=== PATIENT | male | born 1990 | race African-American/Black ===

== ENCOUNTER 2024-11-29 13:02 | Inpatient (IN) | payer OTHER, SELFPAY ==
[2024-11-29] VITALS (8 sets, daily range): BP systolic 111–131; BP diastolic 70–88; BMI 31.9; BMI 32.0
--- NOTE | 2024-11-29 10:08 | ED.GENMED ---
History of Present Illness
General
Chief Complaint: Change in Mental Status
Source: patient and family (parents)
Time Seen by Provider: 11/29/24 09:41
History of Present Illness
History of Present Illness:
The patient is a 34-year-old male who presented to the emergency department with hallucinations, slurred speech, and increased thirst and urination. He reports using nitrous oxide, commonly referred to as 'whippets,' continuously for approximately
one week. He was consuming two to three large canisters per day. He has also been smoking cannabis occasionally. The patient mentioned feeling very thirsty and experiencing an inability to quench his thirst over the last few days. He is not aware of
having diabetes but was informed about being pre-diabetic approximately two to three months ago. He reported the last use of nitrous oxide was on Sunday. He has a history of hypertension and anxiety but does not report any surgeries.
Per the patients parents, the patient exhibited slurred speech and hallucinations, talking to people who were not present. His cognitive function appeared impaired, presenting as nervousness and twitchiness.
Past History
Past History
ED Past Medical History: None
ED Past Surgical History: None
Social History
Tobacco: Non-smoker
Personal: Single
Living: with roommate
Employment: Student
Phy Exam
Physical Exam
Physical Exam:
General: Awake, Alert, Oriented X3. No acute distress.
Vitals: Mildly tachycardic
Head: Atraumatic
Eyes: Pupils equal, EOMI
Throat: Airway intact, no exudates, dry mucosa
Neck: Trachea midline
Lungs: Clear and equal b/l
Heart: Regular rate, no murmurs
Abd: Soft, Nontender, No pulsatile mass
Neuro: Cranial nerves intact, muscle strength equal bilaterally, cerebellar exam normal, mild tremor
Skin: Warm, dry, no rash
Extremities: pulses equal b/l, no edema, positive clubbing
Course
Orders/Labs/Results
Orders:
Orders
11/29/24 09:53
0.9% Sodium Chloride 1000 ml [Nss] 1,000 ml IV BOLUS
11/29/24 09:54
CT Head W/o Iv Contrast Urgent
Comment:
Reason For Exam: altered mental status
11/29/24 Lunch
2200 calorie (18 carb) Diabetic
At Your Request: Full Participation
Does patient need a safe tray?: Yes
11/29/24 10:10
Electrocardiogram (*1) Urgent
Reason for Study: Palpitations
Bedside Glucose- Treatment ONCE
Cardiac Monitoring- Treatment ONCE
EKG- Treatment ONCE
11/29/24 10:18
Complete Blood Count/With Diff Urgent
Comprehensive Metabolic Panel Urgent
Magnesium Urgent
TSH Reflex To Free T4 Urgent
11/29/24 10:27
ABG [Arterial Blood Gas] Urgent
%Oxygen/Room Air: ra
Comment: methemaglobin level please
Methemoglobin Urgent
11/29/24 11:16
Bedside Glucose- Treatment Q1H
IV Insert/Care/Rem.- Treatment PRN
11/29/24 11:22
Microalbumin, Random Urine Urgent
Date Specimen was Collected: 11/29/24
Time Specimen was Collected: 11:20
Comment: ADD ON
Urinalysis Reflex To Culture Urgent
Date Specimen was Collected: 11/29/24
Time Specimen was Collected: 11:20
Urine Drug Abuse Screen Urgent
Date Specimen was Collected: 11/29/24
Time Specimen was Collected: 11:20
11/29/24 11:30
Reg Insulin 100 Units/100 ml [Novolin R Insulin Infusion] 100 units in 100 ml IV NOW
11/29/24 12:00
KCl 20 Meq/0.9%Sodchl 1000 ml [NSS with KCL 20 MEQ] 20 meq in 1,000 ml IV 250 mls/hr
11/29/24 12:37
Admit/Transfer Patient As Directed
Co-Sign Provider:
Level of Care: Inpatient admission
Assign to:: Medical/Surgical
Physician / Group: Hospitalists
Diagnosis: Altered Mental status, Hyperglycemia
Reason for Hospitalization: Altered Mental status, Hyperglycemia
Expected length of stay greater than two midnights?: Yes
ELOS- Estimated Length of Stay in days: 4
I certify the patient meets the requirements for IP care: Yes
11/29/24 12:38
PRN Pain Medication Management As Directed
May give lesser potent ordered pain med per pt: Yes
preference::
Protocol:: Medication orders for pain may be administered in a
manner that supports deferring to patient preference
when the pt is:
- Requesting an ordered lesser potent pain medication.
Least to most potent pain medications are defined
as: acetaminophen < NSAID < tramadol < opioids
(morphine, oxycodone, hydromorphone).
- Requesting a lesser dose of the same medication IF
ORDERED.
- Requesting a less intrusive route of administration
if both routes are prescribed by the provider (PO <
IV).
11/29/24 12:39
Code Status As Directed
Resuscitation Status: Full Code
11/29/24 13:00
Flush (0.9% Sodium Chloride) [Flush (Nss)] See Dose Instructions IV PER PROTOCOL
11/29/24 13:03
Basic Metabolic Panel Q2H
11/29/24 15:30
Basic Metabolic Panel Q2H
11/29/24 15:54
KCl 20 Meq/0.9%Sodchl 1000 ml [NSS with KCL 20 MEQ] 20 meq in 1,000 ml IV 100 mls/hr
11/29/24 15:54
Diabetes Education Consult Routine
Reason for Consult: Other
Newly Diagnosed?: Yes
Diabetes Management by Nurse Practitioner Routine
Consulting Provider: Douse,Jenna
Was provider already notified?: No
Reason for Consult: Insulin Management
Activity As Directed
Activity Level: As Tolerated
Bedside Glucose Monitoring As Directed
Frequency: q4h
Intake/ Output As Directed
Frequency: Per unit guidelines
Notify MD As Directed
Notify physician if: Nurse to contact provider when glucose reaches 250 to obtain orders for D5 0.45 NaCl
Pneumatic Compression Sleeves As Directed
Type: Knee high
Vital Signs As Directed
Frequency: Per unit guidelines
DX Deep Vein Thrombosis Video Routine
11/30/24 06:00
Complete Blood Count/No Diff IN AM
Glycohemoglobin (HgbA1c) IN AM
11/30/24 08:00
Atorvastatin [Lipitor] 10 mg PO DAILY
FOLic ACID [Folvite] 1 mg PO DAILY
Fluoxetine HCl [Prozac] 60 mg PO DAILY
brexpiprazole [Rexulti] 1 mg PO DAILY
12/01/24 06:00
Complete Blood Count/No Diff IN AM
12/02/24 06:00
Complete Blood Count/No Diff IN AM
12/03/24 06:00
Complete Blood Count/No Diff IN AM
Abnormal Lab Results
11/29/24 11/29/24 11/29/24
10:18 10:27 11:22
RBC 4.22 L 10^6/uL
(4.70-6.10)
Hgb 12.5 L g/dL
(13.0-18.0)
Hct 36.7 L %
(39.0-52.0)
RDW 15.5 H %
(11.5-14.5)
MPV 11.0 H fL
(7.4-10.4)
Abs Immat Gran (auto) 0.1 H 10^3/uL
(0-0.05)
Absolute Monos (auto) 0.7 H 10^3/uL
(0.1-0.6)
Immature Gran % 1.0 H %
(0-0.5)
Monocytes % 11.0 H %
(1.7-9.3)
pO2 68 L mmHg
(83-108)
Sodium 130 L mmol/L
(135-145)
Potassium 5.3 H mmol/L
(3.5-5.1)
Chloride 94 L mmol/L
(98-107)
Glucose 760 H* mg/dl
(70-99)
Magnesium 2.4 H mg/dl
(1.6-2.3)
Alkaline Phosphatase 199 H U/L
(38-126)
Urine Glucose 4+ A
(Negative)
U Marijuana (THC) Screen Positive H
(Negative)
POC Glucose
11/29/24
12:57
RBC
Hgb
Hct
RDW
MPV
Abs Immat Gran (auto)
Absolute Monos (auto)
Immature Gran %
Monocytes %
pO2
Sodium
Potassium
Chloride
Glucose
Magnesium
Alkaline Phosphatase
Urine Glucose
U Marijuana (THC) Screen
POC Glucose 349 H mg/dl
(70-99)
11/29/24 10:18
11/29/24 10:18
Vital Signs
Initial and Last Documented VS:
Initial Vital Signs
Temp Pulse Resp BP Pulse Ox
99.4 F 105 20 131/88 96
11/29/24 09:20 11/29/24 09:20 11/29/24 09:20 11/29/24 09:20 11/29/24 09:20
Last Documented Vital Signs
Temp Pulse Resp BP Pulse Ox
98.6 F 103 16 121/74 90
11/29/24 15:50 11/29/24 15:50 11/29/24 15:50 11/29/24 15:50 11/29/24 15:50
MDM/Problems Addressed
Differential Diagnosis Includes:
The Differential Diagnosis includes, in no particular order and is not limited to:
1. Acute hallucinogen intoxication
2. Substance-induced psychotic disorder
3. Uncontrolled hypertension
4. Hyperglycemia or new-onset diabetes mellitus
5. Electrolyte imbalance
6. Acute anxiety exacerbation
7. Stroke or transient ischemic attack
8. Central nervous system infection or inflammation
9. Intracranial hemorrhage or mass
MDM/Problems Addressed:
Patient presents with hallucinations, confusion, polyuria, polydipsia, polyphasia. Upon initial evaluation I was suspecting the patient's symptoms were related to his whippets use. However labs show that he has significant elevation in his
glucose. He does not have a elevated anion gap and a arterial pH is normal. Given the marked elevation of his glucose he was started on an insulin infusion. IV fluid boluses also administered. Patient will require hospitalization for careful
monitoring and initiation of diabetic treatment. Patient advised that the whippets are also contributing to some of his symptoms particularly likely the cause of his hallucinations and psychiatric symptoms. He is interested in talking to be cares.
A call was placed for that.
*Radiology
Radiology exam reviewed: radiology read reviewed
*Pulse Oximetry
SaO2: 96
Oxygen Mode of Delivery: Room air
Patient hypoxic: no
*EKG
Interpreted by ED Provider?: Yes
Interpretation: abnormal
Heart Rate: 109
Rate: tachycardiac
Rhythm: sinus tachycardia
[place]: normal axis
Interval: normal interval
QRS Pattern: normal QRS
Ischemia: no ischemia
*Unit Educator Interpretation
Rate: tachycardiac
Interpretation: abnormal
Heart Rate: 109
Rhythm: sinus tachycardia
*Critical Care Note
Total Time (30-74mins, 75-104mins- exclusive of procedures): 45 min
comment:
Critical care statement: A total of 45 minutes of critical care time was provided for this patient. This includes management of unstable vital signs, evaluation of the patient at bedside, reviewing the patient's pertinent medical records, discussion
with consultants, review of old EKGs and review of pertinent medical records. This time with separate from time utilized to perform the aforementioned documented procedures
Patient Management
Social determinants of health affecting care: Substance abuse ([facility])
ED Attending Note
-
Portions of this chart may have been created with voice recognition software.� Occasional wrong word or��sound alike� substitutions may have occurred due to the inherent limitations of voice recognition software.
Discharge Plan
Departure
Patient Disposition: Admit
Date of Disposition: 11/29/24
Time of Disposition: 11:21
Admit to: IMU
Presentation/result/management discussed w/ accepting MD/DO: Hospitalist
Condition: Serious
Discharge Problem:
Hyperosmolar hyperglycemic state (HHS), Nitrous oxide user
Interventions
Interventions:
*Risk Screen - Suicide Last Done: 11/29/24 16:06
*General Assessment Last Done: 11/29/24 09:20
*Neglect/Abuse Screening Last Done: 11/29/24 10:26
*ED- Fall Risk Assessment Last Done: 11/29/24 10:22
*ED COVID-19 Vaccine History Last Done: 11/29/24 16:06
*Nursing Disposition Last Done: 11/29/24 15:48
ED- Pulmonary Assessment Last Done: 11/29/24 11:00
ED-Psychological Assessment Last Done: 11/29/24 11:00
ED- Neurological Assessment Last Done: 11/29/24 11:00
ED- Cardiac Assessment Last Done: 11/29/24 11:00
Discharge Date and Time
Discharge Date/Time: 11/29/24 15:48
[2024-11-29] MEDS: NSS 1000 IV (10:18)
[2024-11-29 10:37] LABS: Hematocrit 36.7 % (39.0-52.0); Hemoglobin 12.5 g/dL (13.0-18.0); Mean Corp Hgb Conc. 34.1 g/dL (33.0-37.0); Mean Corpuscular Volume 87.0 fL (80.0-94.0); Nucleated Red Blood Cells % 0 % (-); Platelet Count 262 10^3/uL (130-400); Red Cell Dist. Width 15.5 % (11.5-14.5)
[2024-11-29 10:38] LABS: B.E. 1.0 mmol/L; HCO3 26.0 mmol/L (21-28); O2 Saturation % 95.9 % (94-98); PCO2 42 mmHg (35-48); PO2 68 mmHg (83-108)
[2024-11-29 10:49] LABS: Methemoglobin 1.2 % (0.5-1.5)
[2024-11-29 10:55] LABS: ALT (SGPT) 30 U/L (0-50); AST (SGOT) 17 U/L (17-59); Albumin 4.6 g/dl (3.5-5.0); Alkaline Phosphatase 199 U/L (38-126); Blood Urea Nitrogen 19 mg/dl (9-20); Calcium 9.7 mg/dl (8.4-10.2); Carbon Dioxide 27 mmol/L (22-30); Chloride 94 mmol/L (98-107); Estimated Creatinine Clearance > 125 ml/min; Magnesium 2.4 mg/dl (1.6-2.3); Potassium 5.3 mmol/L (3.5-5.1); Sodium 130 mmol/L (135-145); Total Protein 7.5 g/dl (6.3-8.2); eGFR > 60.00
[2024-11-29 11:09] LABS: Glucose 760 mg/dl (70-99)
[2024-11-29 11:33] LABS: Urine Character Clear (Clear)
[2024-11-29] MEDS: NSS with KCL 20 MEQ 1000 IV ×2 (11:53→17:07)
[2024-11-29] MEDS: NOVOLIN R INSULIN INFUSION 100 IV (11:54)
[2024-11-29 12:59] LABS: Glucose - Point of Care 349 mg/dl (70-99)
[2024-11-29 13:31] LABS: Blood Urea Nitrogen 18 mg/dl (9-20); Calcium 9.4 mg/dl (8.4-10.2); Carbon Dioxide 28 mmol/L (22-30); Chloride 102 mmol/L (98-107); Estimated Creatinine Clearance > 125 ml/min; Glucose 382 mg/dl (70-99); Potassium 4.4 mmol/L (3.5-5.1); Sodium 138 mmol/L (135-145); eGFR > 60.00
[2024-11-29 14:02] LABS: Glucose - Point of Care 254 mg/dl (70-99)
--- NOTE | 2024-11-29 14:13 | HPS.HSE ---
Addendum entered and electronically signed by Rosemary Mckinley MD 11/29/24 15:17:
I saw and evaluated the patient independently. I reviewed the resident�s note and agree with findings and plan as documented by Dr. Galarza.
GENERAL: well developed, well nourished, male in no apparent distress--appears 'high'
HEENT: NC/AT
HEART: regular rate and rhythm, +S1, +S2
LUNGS : clear to auscultation bilaterally
ABDOM: soft, nontender, nondistended, + bowel sounds
EXT: no cyanosis, clubbing, or edema
NEUROLOGIC: twitchy--otherwise nonfocal
Hyperosmolar hyperglycemic state--as result of new onset DM--started IVF and insulin drip--BS improved from 760 to 349--c/o thirsty, hungry, and frequent urination--await HGB U1A--xrokl mealtime novolog with SSI and lantus HS--follow blood
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
Pseudohyponatremia-- Monitoring�stable--130 corrects to 141
Altered mental status with hallucinations and slurred speech--Parents endorse that the patient has been hallucinating and talking to himself--vapes nicotine, inhales 'whippets' (nitrous oxide), and smokes marijuana--could be drug effect--no h/o
schizophrenia or schizoaffective disorder--cont prozac and Rexulti--await psych--cont thiamine, folic acid
Anxiety/depression--Continue fluoxetine/brexpiprazole
Hyperlipidemia: Monitoring�-atorvastatin 10 mg p.o. daily
DVT Proph--SCDs
code status--FULL CODE
Original Note:
Family Physician
-
Family Physician: Carrol Abrams
Chief Complaint
-
Altered mental status and excessive drinking and urination
History of Present Illness
Patient is a 34-year-old male with a past medical history of prediabetes recently diagnosed, essential hypertension, anxiety, depression, and hyperlipidemia who came to the emergency department with hallucinations, slurred speech, increased thirst
with urination. He reported using nitric oxide continuously for 1 week. He was using approximately 2-3 large canisters daily. The size of these canisters were about the size of a liter bottle. He uses THC frequently. At home he was very thirsty
unable to quench his thirst over the last few days prior to his presentation. He had been thirsty all the time. He has been urinating frequently and his parents have noticed that the frequency of his urination is very similar to what his mother
who has diabetes experienced when her glucose was poorly controlled. He was informed that he was prediabetic 2 to 3 months prior to his presentation. He states that he last used nitric oxide on last Sunday which was approximately a week ago.
Patient stated that he feels overall unwell and that he feels somewhat better after consuming food. The patient's parents were at the bedside and stated that the patient had slurred speech with hallucinations while at home. They also stated that
he was talking to people who were not there. He also had hyperhidrosis noted by his parents. His last episode of acute altered mental status was in May of this year. At that time he lived in [place] at a [facility] and was found to be
using nitric oxide at that time. Since then he is returned to [place] and lives with his parents. This most recent episode is the first time he is relapsed since arriving to [place]. He states that he does not smoke cigarettes but he
does vape nicotine. 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 In the emergency department the patient was found to be tachycardic but the remainder of his vital signs were within normal limits. CBC was unremarkable. CMP showed a
sodium of 130, potassium of 5.3, elevated glucose at 760, and alk phos of 199. Urine analysis showed 4+ glucose in the urine. ABG conducted in the emergency department was within normal limits. Urine drug screen was positive for marijuana. CT
scan of the head conducted in the emergency department was unremarkable. Patient was admitted to [facility] for hyperosmolar hyperglycemic state and altered mental status.
Medical History
Past Medical History
Past Medical History: Reports HTN, Hypercholesterolemia and Psychiatric (Anxiety and depression)
Past Surgical History: Reports None
Social History
Tobacco: Vaping (Nicotine)
Alcohol: None
Drug: Marijuana
Personal: Single
Living: With Family
Employment: Not Employed (Formerly employed as a baseball glove shaper)
Family History
Family History: Asthma, Diabetes and Hypertension
Allergies / Home Medications
Allergies
Allergy/AdvReac Type Severity Reaction Status Date / Time
peanut Allergy itchy Verified 11/29/24 09:22
mouth,
vomiting,
abd pain
cats dander Allergy Rash Uncoded 11/29/24 09:22
Home Medications
atorvastatin 10 mg tablet (Lipitor) 10 mg PO DAILY 11/29/24
brexpiprazole 1 mg tablet (Rexulti) 1 mg PO DAILY 11/29/24
fluoxetine 60 mg tablet 60 mg PO DAILY 11/29/24
folic acid 1 mg tablet 1 mg PO DAILY 11/29/[address]
CT Scan
Category Date Time Status
CT Head W/o Iv Contrast Urgent CT 11/29/24 09:54 Completed
Allergy/Medication List:
Allergies
Allergy/AdvReac Type Severity Reaction Status Date / Time
peanut Allergy itchy Verified 11/29/24 09:22
mouth,
vomiting,
abd pain
cats dander Allergy Rash Uncoded 11/29/24 09:22
Home Medications
atorvastatin 10 mg tablet (Lipitor) 10 mg PO DAILY 11/29/24
brexpiprazole 1 mg tablet (Rexulti) 1 mg PO DAILY 11/29/24
fluoxetine 60 mg tablet 60 mg PO DAILY 11/29/24
folic acid 1 mg tablet 1 mg PO DAILY 11/29/24
Review of Systems
-
Constitutional: Reports See HPI and Other (Hyperhidrosis at home)
EENT: Reports No Symptoms
Respiratory: Reports No Symptoms
Cardiac: Reports No Symptoms
Abdomen/GI: Reports No Symptoms
: Reports No Symptoms
Musculoskeletal: Reports No Symptoms
Skin: Reports No Symptoms
Neurological: Reports No Symptoms
Endocrine: Reports No Symptoms
Hematologic/Lymphatic: Reports No Symptoms
Psych: Reports Anxiety
Physical Exam
Vital Signs
Vital Signs
Temp Pulse Resp BP Pulse Ox
99.4 F 96 15 121/75 97
11/29/24 09:20 11/29/24 13:00 11/29/24 13:00 11/29/24 13:00 11/29/24 13:00
Physical Exam
General: Well Developed, Well Nourished, No Apparent Distress, Comfortable and Conversant
HEENT: NormoCephalic, Moist mucous membranes and Atraumatic; No No Ptosis
Respiratory: Clear and Non Labored Respirations; No Wheezes, Rales, Rhonchi or Crackles
Cardiac: S1/S2 and Regular Rhythm; No Murmur, Rub, Gallop, Peripheral Edema, JVD or HJR
GI: Soft, Non Tender, Non Distended and Normal Bowel Sounds
Rectal: Deferred by Provider
Genito-urinary: Deferred by me
Musculoskeletal: No Clubbing, No Cyanosis, No Edema and Normal Gait & Station; No Cyanosis
Skin: Warm and Dry; No Rash, Jaundice, Ulcers or Lesions
Neuro: Awake, Alert, Oriented and AO x 3
Psych: Calm
Laboratory Results
-
11/29/24 10:18
Laboratory Results
pH 7.40 (7.35-7.45) 11/29/24 10:27
pCO2 42 mmHg (35-48) 11/29/24 10:27
pO2 68 mmHg (83-108) L 11/29/24 10:27
HCO3 26.0 mmol/L (21-28) 11/29/24 10:27
Total Bilirubin 0.6 mg/dl (0.2-1.3) 11/29/24 10:18
AST 17 U/L (17-59) 11/29/24 10:18
ALT 30 U/L (0-50) 11/29/24 10:18
Alkaline Phosphatase 199 U/L (38-126) H 11/29/24 10:18
Impression/Plan
-
HPI: Patient is a 34-year-old male with a past medical history of prediabetes recently diagnosed, essential hypertension, anxiety, depression, and hyperlipidemia who came to the emergency department with hallucinations, slurred speech, increased
thirst with urination. He reported using nitric oxide continuously for 1 week. He was using approximately 2-3 large canisters daily. Had a blood glucose greater than 700 in the emergency department. Started on an insulin drip. Admitted for
hyperosmolar hyperglycemic state with altered mental status.
Assessment/Plan:
-Hyperosmolar hyperglycemic state: Improving�monitoring
Upon arrival to the emergency department the patient's BMP had a glucose of 760 and a POC glucose of 349
Patient was frequently drinking water and urinating. He stated that he felt thirsty all the time.
Anion gap calculated to be 9, ABG unremarkable with normal pH, urine glucose 4+... -indicating HHS ruling out DKA
Patient started on an insulin drip in the emergency department and supportive fluids
Patient responded quickly to IV insulin and follow-up labs showed reduced blood glucose at 382 and a POC glucose of 254
Insulin drip discontinued
Patient switched to moderate sliding scale insulin
10 Lantus at bedtime
3 NovoLog AC
Follow potassium and replete as needed
Hemoglobin A1c ordered
Urine microalbumin ordered
Diabetic nurse practitioners consulted
-Pseudohyponatremia: Monitoring�stable
Patient was hyponatremic with a value of 130 on BMP
Sodium correction for hyponatremia calculated to be at 141 mEq/L -within normal limits
Follow-up lab work had a sodium of 138�within normal limits
-Altered mental status with hallucinations and slurred speech: Monitoring-stable
Parents endorse that the patient has been hallucinating and talking to himself
Patient appears to be on brexpiprazole which is a second generation atypical antipsychotic used for schizophrenia and depression
Psychiatry consulted for assessment and management of altered mental status that may be secondary to underlying psychiatric condition such as schizophrenia or polypharmacy in the setting of recreational drug use
Thiamine and folate given
-Anxiety/depression: Monitoring�stable
Continue fluoxetine 60 mg p.o. daily
Continue brexpiprazole 1 mg p.o. daily
-Hyperlipidemia: Monitoring�stable
Continue atorvastatin 10 mg p.o. daily
-Substance use disorder:
Supportive counseling and education provided at the bedside
Will connect the patient with [facility]
FULL CODE STATUS
DVT Prophylaxis: SCDs
Imaging:
CT of the head conducted on 11/29/2024:
No acute intracranial abnormality.
Procedures: Not applicable
[2024-11-29 16:42] LABS: Glucose - Point of Care 160 mg/dl (70-99)
[2024-11-29 17:00] LABS: Glucose - Point of Care 301 mg/dl (70-99)
[2024-11-29 17:04] LABS: Microalbumin, Random Urine 0.9 mg/dl (0.6-1.7)
[2024-11-29] MEDS: NSS with KCL 20 MEQ IV (17:06)
[2024-11-29] MEDS: NOVOLOG FLEXPEN-MODERATE RESISTANCE 7 UNITS SC (17:06)
[2024-11-29] MEDS: NOVOLOG FLEXPEN 5 UNITS SC (17:27)
[2024-11-29 21:40] LABS: Glucose - Point of Care 238 mg/dl (70-99)
[2024-11-29] MEDS: LANTUS 0.15 UNITS SC (21:43)
[2024-11-29 22:02] LABS: Blood Urea Nitrogen 18 mg/dl (9-20); Calcium 9.3 mg/dl (8.4-10.2); Carbon Dioxide 25 mmol/L (22-30); Chloride 105 mmol/L (98-107); Estimated Creatinine Clearance > 125 ml/min; Glucose 255 mg/dl (70-99); Potassium 4.5 mmol/L (3.5-5.1); Sodium 137 mmol/L (135-145); eGFR > 60.00
[2024-11-30] MEDS: NSS with KCL 20 MEQ 1000 IV (02:46)
[2024-11-30 07:12] LABS: Hematocrit 37.2 % (39.0-52.0); Hemoglobin 12.8 g/dL (13.0-18.0); Mean Corp Hgb Conc. 34.4 g/dL (33.0-37.0); Mean Corpuscular Volume 87.1 fL (80.0-94.0); Platelet Count 269 10^3/uL (130-400); Red Cell Dist. Width 15.4 % (11.5-14.5)
[2024-11-30 07:29] LABS: Glucose - Point of Care 169 mg/dl (70-99)
--- NOTE | 2024-11-30 07:30 | W.PN.HOSP.TC ---
Addendum entered and electronically signed by Rosemary Mckinley MD 11/30/24 17:31:
I saw and evaluated the patient independently. I reviewed the resident�s note and agree with findings and plan as documented by Dr. Galarza.
GENERAL: well developed, well nourished, male in no apparent distress
HEENT: NC/AT
HEART: regular rate and rhythm, +S1, +S2
LUNGS : clear to auscultation bilaterally
ABDOM: soft, nontender, nondistended, + bowel sounds
EXT: no cyanosis, clubbing, or edema
NEUROLOGIC: nonfocal
Hyperosmolar hyperglycemic state--as result of new onset DM, HGB A1C 9.1 and sugar 760 on admission--spent 1 hour on IV insulin drip before needing to stop it--now off IVF too, started novolog 5 units with meals and lantus 15 units HS--c/o thirsty,
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
Pseudohyponatremia-- Monitoring�stable--130 corrects to 141--resolved
Altered mental status with hallucinations and slurred speech--Parents endorse that the patient has been hallucinating and talking to himself--vapes nicotine, inhales 'whippets' (nitrous oxide), and smokes marijuana--could be drug effect--no h/o
schizophrenia or schizoaffective disorder--cont prozac and Rexulti--apprec psych--cont thiamine, folic acid--back to baseline
Anxiety/depression--Continue fluoxetine/brexpiprazole
Hyperlipidemia: Monitoring�-atorvastatin 10 mg p.o. daily
DVT Proph--SCDs
code status--FULL CODE
Original Note:
Today's Communication/Plan
-
Patient appears to be back at his baseline cognitively. His blood glucose is 154 and he has responded well to insulin.
Diabetic nurse practitioner consult for outpatient diabetes management
Assessment / Plan
Assessment / Plan
HPI: Patient is a 34-year-old male with a past medical history of prediabetes recently diagnosed, essential hypertension, anxiety, depression, and hyperlipidemia who came to the emergency department with hallucinations, slurred speech, increased
thirst with urination. He reported using nitrous oxide continuously for 1 week. He was using approximately 2-3 large canisters daily. Had a blood glucose greater than 700 in the emergency department. Started on an insulin drip. Admitted for
hyperosmolar hyperglycemic state with altered mental status.
Assessment/Plan:
-Hyperosmolar hyperglycemic state: Improving�monitoring
Upon arrival to the emergency department the patient's BMP had a glucose of 760 and a POC glucose of 349
Patient was frequently drinking water and urinating. He stated that he felt thirsty all the time.
Anion gap calculated to be 9, ABG unremarkable with normal pH, urine glucose 4+... -indicating HHS ruling out DKA
Patient started on an insulin drip in the emergency department and supportive fluids
Patient responded quickly to IV insulin and follow-up labs showed reduced blood glucose at 382 and a POC glucose of 254
Insulin drip discontinued
Patient switched to moderate sliding scale insulin
15 Lantus at bedtime
5 NovoLog AC
Follow potassium and replete as needed
Hemoglobin A1c is 9.1�indicating diabetes
Urine microalbumin within normal limits
Diabetic nurse practitioners consulted
Blood glucose was 154 on 11/30/2024 with POC glucose of 149 on the same day
-Pseudohyponatremia: Monitoring�stable
Patient was hyponatremic with a value of 130 on BMP
Sodium correction for hyponatremia calculated to be at 141 mEq/L -within normal limits
Follow-up lab work had a sodium of 138�within normal limits
-Altered mental status with hallucinations and slurred speech: Monitoring-stable
Parents endorse that the patient has been hallucinating and talking to himself
Patient appears to be on brexpiprazole which is a second generation atypical antipsychotic used for schizophrenia and depression
Psychiatry consulted for assessment and management of altered mental status that may be secondary to underlying psychiatric condition such as schizophrenia or polypharmacy in the setting of recreational drug use
Thiamine and folate given
-Anxiety/depression: Monitoring�stable
Continue fluoxetine 60 mg p.o. daily
Continue brexpiprazole 1 mg p.o. daily
-Hyperlipidemia: Monitoring�stable
Continue atorvastatin 10 mg p.o. daily
-Substance use disorder:
Supportive counseling and education provided at the bedside
Will connect the patient with [facility]
FULL CODE STATUS
DVT Prophylaxis: SCDs
Imaging:
CT of the head conducted on 11/29/2024:
No acute intracranial abnormality.
Procedures: Not applicable
Anticipated Discharge: 24 - 48 hours
Subjective/Interval History
-
Date of Service: November 30, 2024
Met with patient at the bedside. Overall he is doing much better today than he did on the date of his admission. He is fully alert and does not seem to be as tired as it was the day prior. Patient understands that he is doing better with the
insulin and that he needs to be more proactive in regards to managing his blood sugars. He is aware that he will meet with the nurse practitioner hopefully tomorrow in order to discuss outpatient diabetes management and the meds that he will want
to remain on in the outpatient setting. Has no complaints at the present time.
Objective Data
-
Labs:
Laboratory Results
11/30/24
06:27
WBC 8.8
Hgb 12.8 L
Hct 37.2 L
Plt Count 269
Sodium 136
Potassium 4.5
Chloride 106
Carbon Dioxide 25
BUN 14
Creatinine 0.9
Glucose 154 H
Calcium 8.9
Total Bilirubin 0.7
AST 18
ALT 26
Alkaline Phosphatase 96
Vital Signs:
Vital Signs
Temp Pulse Resp BP Pulse Ox
98.2 F 95 16 115/79 98
11/30/24 08:00 11/30/24 08:00 11/30/24 08:00 11/30/24 08:00 11/30/24 08:00
I&O
11/29/24 11/30/24 12/01/24
06:59 06:59 06:59
Intake Total 1680 / 1680
Balance 1680 / 1680
Review of Systems
-
All other systems: Reviewed and negative
Constitutional: Reports No Symptoms
Physical Exam
-
General: Well Developed, Well Nourished, No Apparent Distress and Comfortable
HEENT: Normocephalic, Atraumatic and Moist Mucous Membranes
Respiratory: Clear to Auscultation; Negative Wheezes, Rales, Rhonchi or Crackles
Cardiac: Regular Rhythm and S1/S2
Breast: Deferred by me
GI: Soft, Nondistended and Normal Bowel Sounds
Rectal: Deferred by Provider
Genito-urinary: Deferred by me
Musculoskeletal: No Clubbing, No Cyanosis and No Edema
Skin: Warm, Dry and Normal Turgor; Negative Rash, Ulcers, Lesions, Jaundice or Decubitus Ulcers
Neuro: Awake, Alert, Oriented and AO x 3
Psych: Calm
[2024-11-30 07:34] LABS: ALT (SGPT) 26 U/L (0-50); AST (SGOT) 18 U/L (17-59); Albumin 4.0 g/dl (3.5-5.0); Alkaline Phosphatase 96 U/L (38-126); Blood Urea Nitrogen 14 mg/dl (9-20); Calcium 8.9 mg/dl (8.4-10.2); Carbon Dioxide 25 mmol/L (22-30); Chloride 106 mmol/L (98-107); Estimated Creatinine Clearance > 125 ml/min; Glucose 154 mg/dl (70-99); Potassium 4.5 mmol/L (3.5-5.1); Sodium 136 mmol/L (135-145); Total Protein 6.7 g/dl (6.3-8.2); eGFR > 60.00
[2024-11-30] MEDS: NOVOLOG FLEXPEN-MODERATE RESISTANCE 1 UNITS SC (07:34)
[2024-11-30] MEDS: LIPITOR 10 MG PO (07:34)
[2024-11-30] MEDS: FOLVITE 1 MG PO (07:34)
[2024-11-30] MEDS: PROZAC 60 MG PO (07:34)
[2024-11-30] MEDS: NOVOLOG FLEXPEN 5 UNITS SC ×3 (07:35→16:50)
[2024-11-30 08:00] VITALS: BP 115/79
[2024-11-30 09:31] LABS: Glycohemoglobin (HgbA1c) 9.1 % (4.0-5.6)
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
[2024-11-30 12:02] LABS: Glucose - Point of Care 149 mg/dl (70-99)
[2024-11-30] MEDS: NOVOLOG FLEXPEN-MODERATE RESISTANCE SC (12:21)
--- NOTE | 2024-11-30 13:31 | CM ---
Addendum entered by María Elena Lucio 11/30/24 14:32:
Several calls placed to [facility] and comp field case manager spoke with Tina [phone] and [facility] will evaluate patient.
Original Note:
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
moved to [place] with their 2 children, patient has been in inpatient treatment in [facility] [place], comp field case manager reviewed with patient options and patient is agreeable to a referral to [facility], message left with [facility] to meet
with patient.
PCP: Dr. Carrol Abrams
Pharmacy: [facility]
[2024-11-30 15:00] VITALS: BP 114/73
[2024-11-30 16:50] LABS: Glucose - Point of Care 223 mg/dl (70-99)
[2024-11-30] MEDS: NOVOLOG FLEXPEN-MODERATE RESISTANCE 3 UNITS SC (16:50)
[2024-11-30 21:15] LABS: Glucose - Point of Care 224 mg/dl (70-99)
[2024-11-30] MEDS: LANTUS 0.15 UNITS SC (21:52)
[2024-11-30 23:00] VITALS: BP 110/75
[2024-12-01] MEDS: LIPITOR 10 MG PO (07:27)
[2024-12-01] MEDS: FOLVITE 1 MG PO (07:27)
[2024-12-01] MEDS: PROZAC 60 MG PO (07:27)
[2024-12-01] MEDS: NOVOLOG FLEXPEN 5 UNITS SC (07:32)
[2024-12-01 07:33] LABS: Glucose - Point of Care 181 mg/dl (70-99)
[2024-12-01] MEDS: NOVOLOG FLEXPEN-MODERATE RESISTANCE 1 UNITS SC (07:33)
[2024-12-01 07:59] VITALS: BP 114/81
--- NOTE | 2024-12-01 08:25 | PN.DE.MGMTRT ---
Insulin Management
- -
12/01/2024 Diabetes Management Consult
Patient admitted 11/29 with change in mental status, hallucinations, talking to himself, thirst and frequent urination. PMH HTN, PTSD, depression, anxiety, HLD, polysubstance abuse. No history of diabetes. A1C on admission 9.1%, cr .9, eGFR > 60.
Patient is awake alert and oriented able to discuss diabetes care. States ~ 08/05 he was told he had pre diabetes and was told to watch diet and begin exercise. Patient has been started on lantus 15 units with novolog 6 units AC. Glucose range
154 to 224. Will increase AC novolog to 7 units and lantus to 17 units. Will decrease corrective insulin from moderate to low corrective and diet from 2199 to 1999.
Discussed with nurse.
Will follow.
Will ask Diabetes Nurse Educator to provide meter and instructions for meter and insulin administration.
Diabetes History
- -
Type of Diabetes: 2 requiring insulin
Pre-Admission Diabetes Regimen
Lab Results
Hemoglobin A1c 9.1 % (4.0-5.6) H 11/30/24 06:27
Insulin Pump Settings
IP Diabetes Regimen
11/30/24 11/30/24 11/30/24
12:01 16:48 21:14
POC Glucose 149 H 223 H 224 H
12/01/24
07:31
POC Glucose 181 H
Patient Education
[2024-12-01 09:02] LABS: Hematocrit 42.0 % (39.0-52.0); Hemoglobin 14.4 g/dL (13.0-18.0); Mean Corp Hgb Conc. 34.3 g/dL (33.0-37.0); Mean Corpuscular Volume 86.4 fL (80.0-94.0); Platelet Count 328 10^3/uL (130-400); Red Cell Dist. Width 15.4 % (11.5-14.5)
[2024-12-01 09:27] LABS: ALT (SGPT) 34 U/L (0-50); AST (SGOT) 23 U/L (17-59); Albumin 4.7 g/dl (3.5-5.0); Alkaline Phosphatase 102 U/L (38-126); Blood Urea Nitrogen 17 mg/dl (9-20); Calcium 9.7 mg/dl (8.4-10.2); Carbon Dioxide 23 mmol/L (22-30); Chloride 103 mmol/L (98-107); Estimated Creatinine Clearance > 125 ml/min; Glucose 229 mg/dl (70-99); Potassium 4.8 mmol/L (3.5-5.1); Sodium 135 mmol/L (135-145); Total Protein 7.9 g/dl (6.3-8.2); eGFR > 60.00
--- NOTE | 2024-12-01 11:09 | W.PN.HOSP.TC ---
Today's Communication/Plan
-
Patient awaiting diabetic nurse practitioner evaluation for outpatient diabetes management
Patient lined up for evaluation by [facility] -nitrous oxide abuse
Will move forward with discharge planning once discharge medications fine-tuned.
Assessment / Plan
Assessment / Plan
HPI: Patient is a 34-year-old male with a past medical history of prediabetes recently diagnosed, essential hypertension, anxiety, depression, and hyperlipidemia who came to the emergency department with hallucinations, slurred speech, increased
thirst with urination. He reported using nitrous oxide continuously for 1 week. He was using approximately 2-3 large canisters daily. Had a blood glucose greater than 700 in the emergency department. Started on an insulin drip. Admitted for
hyperosmolar hyperglycemic state with altered mental status.
Assessment/Plan:
-Hyperosmolar hyperglycemic state: Improving�monitoring
Upon arrival to the emergency department the patient's BMP had a glucose of 760 and a POC glucose of 349
Patient was frequently drinking water and urinating. He stated that he felt thirsty all the time.
Anion gap calculated to be 9, ABG unremarkable with normal pH, urine glucose 4+... -indicating HHS ruling out DKA
Patient started on an insulin drip in the emergency department and supportive fluids
Patient responded quickly to IV insulin and follow-up labs showed reduced blood glucose at 382 and a POC glucose of 254
Insulin drip discontinued
Patient switched to moderate sliding scale insulin
15 Lantus at bedtime
5 NovoLog AC
Follow potassium and replete as needed
Hemoglobin A1c is 9.1�indicating diabetes
Urine microalbumin within normal limits
Diabetic nurse practitioners consulted
Blood glucose was 154 on 11/30/2024 with POC glucose of 149 on the same day
Blood glucose was 229 with a POC of 160 on 12/01/2024
-Pseudohyponatremia: Monitoring�stable
Patient was hyponatremic with a value of 130 on BMP
Sodium correction for hyponatremia calculated to be at 141 mEq/L -within normal limits
Follow-up lab work had a sodium of 138�within normal limits
-Altered mental status with hallucinations and slurred speech: Monitoring-stable
Parents endorse that the patient has been hallucinating and talking to himself
Patient appears to be on brexpiprazole which is a second generation atypical antipsychotic used for schizophrenia and depression
Psychiatry consulted for assessment and management of altered mental status that may be secondary to underlying psychiatric condition such as schizophrenia or polypharmacy in the setting of recreational drug use
Thiamine and folate given
-Anxiety/depression: Monitoring�stable
Continue fluoxetine 60 mg p.o. daily
Continue brexpiprazole 1 mg p.o. daily
-Hyperlipidemia: Monitoring�stable
Continue atorvastatin 10 mg p.o. daily
-Substance use disorder:
Supportive counseling and education provided at the bedside
[facility]
FULL CODE STATUS
DVT Prophylaxis: SCDs
Imaging:
CT of the head conducted on 11/29/2024:
No acute intracranial abnormality.
Procedures: Not applicable
Anticipated Discharge: Within 24 hours
Subjective/Interval History
-
Date of Service: December 01, 2024
Met with the patient at the bedside. He is calm and pleasant in discussion. He states that even though he feels better he just feels 'off' as if something is not completely back at baseline. He is aware of the fact that he needs to be discharged
on medications to manage his diabetes. He knows that he will be meeting with nurse practitioner later on today for discharge med planning. Recommended that the patient follow-up with his PCP within 1 week following discharge. Patient is also
lined up to meet with [facility].
Objective Data
-
Labs:
Laboratory Results
12/01/24
07:59
WBC 9.4
Hgb 14.4
Hct 42.0
Plt Count 328 D
Sodium 135
Potassium 4.8
Chloride 103
Carbon Dioxide 23
BUN 17
Creatinine 0.8
Glucose 229 H
Calcium 9.7
Total Bilirubin 0.8
AST 23
ALT 34
Alkaline Phosphatase 102
Vital Signs:
Vital Signs
Temp Pulse Resp BP Pulse Ox
98.4 F 89 16 114/81 100
12/01/24 07:59 12/01/24 07:59 12/01/24 07:59 12/01/24 07:59 12/01/24 08:00
I&O
11/30/24 12/01/24 12/02/24
06:59 06:59 06:59
Intake Total 1680 / 1680 720 / 720
Balance 1680 / 1680 720 / 720
Review of Systems
-
History Source: Patient
Constitutional: Reports Other (Feels 'off')
EENT: Reports No Symptoms Reported
Respiratory: Reports No Symptoms
Cardiac: Reports No Symptoms
Abdomen/GI: Reports No Symptoms
Breast: Reports No Symptoms
Genitourinary: Reports No Symptoms
Musculoskeletal: Reports No Symptoms
Skin: Reports No Symptoms
Neuro: Reports No Symptoms
Endocrine: Reports No Symptoms
Hematologic / Lymphatic: Reports No Symptoms
Allergy / Immunology: Reports No Symptoms
Physical Exam
-
General: Well Developed, Well Nourished and No Apparent Distress
HEENT: Normocephalic, Atraumatic and Moist Mucous Membranes
Respiratory: Clear to Auscultation
Cardiac: Regular Rhythm and S1/S2
Breast: Deferred by me
GI: Soft, Nontender, Nondistended and Normal Bowel Sounds
Rectal: Deferred by Provider
Genito-urinary: Deferred by me
Musculoskeletal: No Clubbing, No Cyanosis and No Edema; Negative Clubbing
Skin: Warm and Dry; Negative Rash, Ulcers or Lesions
Neuro: Awake, Alert, Oriented and AO x 3
Psych: Calm
--- NOTE | 2024-12-01 11:14 | PTCARENOTE ---
12/01/2024 DIABETES CONSULT
I met with Perfecto to review diabetes management. He is newly diagnosed with diabetes. States his mother has diabetes, uses CGM.
I educated on physiology of T2D, organ damage, managing with medications, monitoring BG, nutrition, and activity. I reinforced signs of hyperglycemia, hypoglycemia and hypoglycemia protocol; BS parameters and recommended HbA1c goals, glucometer and
CGM instructions, glucose tracker, medic alert bracelet and outpatient DSME program. Written material provided.
I educated and reviewed using Contour Next glucometer, member acknowledged understanding with a self demonstration of checking BS. Provided patient with a Contour Next sample kit.
I educated and demonstrated on insulin injection technique, timing, and storage. Discussed long and short acting insulin; onset/peak/duration, and encouraged Perfecto to administer his own injections with RN supervision while admitted. Discussed
normal target glucose ranges and a monitoring schedule 15 minutes before each meal when prescribed Novolog, and preprandial AM and/or bedtime as recommended by MD.
Encouraged patient to follow up with his PCP for post d/c appointment and to monitor medication and blood glucose levels. Provided list of endocrinologists if desired, to contact insurance company to verify in network status. Requested
prescription sent to pharmacy for test strips and lancets for back up SMBG. Patient verbalized understanding.
[2024-12-01 11:19] LABS: Glucose - Point of Care 160 mg/dl (70-99)
[2024-12-01] MEDS: NOVOLOG FLEXPEN 7 UNITS SC ×2 (11:34→16:40)
[2024-12-01] MEDS: NOVOLOG FLEXPEN-LOW RESISTANCE 1 UNITS SC (11:35)
[2024-12-01 15:42] VITALS: BP 111/75
[2024-12-01 16:37] LABS: Glucose - Point of Care 141 mg/dl (70-99)
[2024-12-01] MEDS: NOVOLOG FLEXPEN-LOW RESISTANCE SC (16:38)
[2024-12-01 21:15] LABS: Glucose - Point of Care 206 mg/dl (70-99)
[2024-12-01] MEDS: LANTUS 0.17 UNITS SC (22:39)
[2024-12-01 23:00] VITALS: BP 120/69
--- NOTE | 2024-12-02 02:25 | DOWNTIME ---
There was a [employer] Client [employer] Operator Downtime on 12/02/2024 from 0100 to 12/02/2024 at 0220. Downtime documentation of patient's care, including medication administrations, has been reconciled in the electronic record per guidelines. Refer to the
patient's paper chart under the miscellaneous tab to see printed paper medication records and downtime forms.
[2024-12-02 07:57] LABS: Glucose - Point of Care 147 mg/dl (70-99)
--- NOTE | 2024-12-02 07:57 | PN.DE.MGMTRT ---
Insulin Management
- -
12/02/2024 Diabetes Management Consult Follow up
Patient admitted 11/29 with change in mental status, hallucinations, talking to himself, thirst and frequent urination. PMH HTN, PTSD, depression, anxiety, HLD, polysubstance abuse. No history of diabetes. A1C on admission 9.1%, cr .9, eGFR > 60.
Patient is awake alert and oriented able to discuss diabetes care. States ~ 08/05 he was told he had pre diabetes and was told to watch diet and begin exercise. 12/01 Received AC novolog to 7 units and lantus to 17 units with low corrective
insulin AC.
12/02 Fasting glucose 147. Will continue lantus 17 units @ hs with novolog 7 units AC.
Discussed with nurse.
Will follow.
Diabetes Nurse Educator has provided meter, Contour Next, and instructions for meter and insulin administration.
Diabetes History
- -
Type of Diabetes: 2 requiring insulin
Pre-Admission Diabetes Regimen
12/01/24
07:59
Creatinine 0.8
Lab Results
Hemoglobin A1c 9.1 % (4.0-5.6) H 11/30/24 06:27
Insulin Pump Settings
IP Diabetes Regimen
12/01/24 12/01/24 12/01/24
07:59 11:18 16:36
Glucose 229 H
POC Glucose 160 H 141 H
12/01/24
21:14
Glucose
POC Glucose 206 H
Meal type: Lunch
Meal type: Breakfast
Amount consumed: 75%
Amount consumed: 100%
Patient Education
[2024-12-02] MEDS: NOVOLOG FLEXPEN 7 UNITS SC ×2 (07:58→12:13)
[2024-12-02] MEDS: NOVOLOG FLEXPEN-LOW RESISTANCE SC (07:58)
[2024-12-02] MEDS: PROZAC 60 MG PO (07:59)
[2024-12-02] MEDS: FOLVITE 1 MG PO (07:59)
[2024-12-02] MEDS: LIPITOR 10 MG PO (08:00)
[2024-12-02 08:04] LABS: Hematocrit 42.3 % (39.0-52.0); Hemoglobin 14.3 g/dL (13.0-18.0); Mean Corp Hgb Conc. 33.8 g/dL (33.0-37.0); Mean Corpuscular Volume 87.6 fL (80.0-94.0); Platelet Count 321 10^3/uL (130-400); Red Cell Dist. Width 15.5 % (11.5-14.5)
[2024-12-02 08:20] VITALS: BP 107/70
[2024-12-02 08:34] LABS: ALT (SGPT) 34 U/L (0-50); AST (SGOT) 20 U/L (17-59); Albumin 4.5 g/dl (3.5-5.0); Alkaline Phosphatase 97 U/L (38-126); Blood Urea Nitrogen 17 mg/dl (9-20); Calcium 9.4 mg/dl (8.4-10.2); Carbon Dioxide 27 mmol/L (22-30); Chloride 101 mmol/L (98-107); Estimated Creatinine Clearance > 125 ml/min; Glucose 161 mg/dl (70-99); Potassium 4.6 mmol/L (3.5-5.1); Sodium 137 mmol/L (135-145); Total Protein 7.8 g/dl (6.3-8.2); eGFR > 60.00
--- NOTE | 2024-12-02 11:44 | CM ---
CM reviewed chart, patient seen bedside. Patient denies needs upon discharge, confirms transportation home. CM spoke with Kasi from [facility] met with patient last night, patient not interested in inpatient services at this time, provided with
outpatient resources. CM will continue to follow for all discharge planning needs.
Plan; home no needs.
[2024-12-02 11:58] LABS: Glucose - Point of Care 212 mg/dl (70-99)
[2024-12-02] MEDS: NOVOLOG FLEXPEN-LOW RESISTANCE 2 UNITS SC (12:14)
--- NOTE | 2024-12-02 13:13 | W.PN.HOSP.TC ---
Today's Communication/Plan
-
Patient doing well on his current insulin dose. Patient will be sent home on 17 Lantus and 7 NovoLog
Will move forward with discharge planning.
Assessment / Plan
Assessment / Plan
HPI: Patient is a 34-year-old male with a past medical history of prediabetes recently diagnosed, essential hypertension, anxiety, depression, and hyperlipidemia who came to the emergency department with hallucinations, slurred speech, increased
thirst with urination. He reported using nitrous oxide continuously for 1 week. He was using approximately 2-3 large canisters daily. Had a blood glucose greater than 700 in the emergency department. Started on an insulin drip. Admitted for
hyperosmolar hyperglycemic state with altered mental status.
Assessment/Plan:
-Hyperosmolar hyperglycemic state: Improving�monitoring
Upon arrival to the emergency department the patient's BMP had a glucose of 760 and a POC glucose of 349
Patient was frequently drinking water and urinating. He stated that he felt thirsty all the time.
Anion gap calculated to be 9, ABG unremarkable with normal pH, urine glucose 4+... -indicating HHS ruling out DKA
Patient started on an insulin drip in the emergency department and supportive fluids
Patient responded quickly to IV insulin and follow-up labs showed reduced blood glucose at 382 and a POC glucose of 254
Insulin drip discontinued
Patient switched to moderate sliding scale insulin
17 Lantus at bedtime
7 NovoLog AC
Follow potassium and replete as needed
Hemoglobin A1c is 9.1�indicating diabetes
Urine microalbumin within normal limits
Diabetic nurse practitioners consulted
Blood glucose was 154 on 11/30/2024 with POC glucose of 149 on the same day
Blood glucose was 229 with a POC of 160 on 12/01/2024
-Pseudohyponatremia: Monitoring�stable
Patient was hyponatremic with a value of 130 on BMP
Sodium correction for hyponatremia calculated to be at 141 mEq/L -within normal limits
Follow-up lab work had a sodium of 138�within normal limits
-Altered mental status with hallucinations and slurred speech: Monitoring-stable
Parents endorse that the patient has been hallucinating and talking to himself
Patient appears to be on brexpiprazole which is a second generation atypical antipsychotic used for schizophrenia and depression
Psychiatry consulted for assessment and management of altered mental status that may be secondary to underlying psychiatric condition such as schizophrenia or polypharmacy in the setting of recreational drug use
Thiamine and folate given
-Anxiety/depression: Monitoring�stable
Continue fluoxetine 60 mg p.o. daily
Continue brexpiprazole 1 mg p.o. daily
-Hyperlipidemia: Monitoring�stable
Continue atorvastatin 10 mg p.o. daily
-Substance use disorder:
Supportive counseling and education provided at the bedside
Will connect the patient with [facility]
FULL CODE STATUS
DVT Prophylaxis: SCDs
Imaging:
CT of the head conducted on 11/29/2024:
No acute intracranial abnormality.
Procedures: Not applicable
Anticipated Discharge: Today
Subjective/Interval History
-
Date of Service: December 02, 2024
Met with patient at the bedside. Overall he is doing good today and offers no complaints. He met with the diabetic nurse practitioner yesterday and they discussed how insulin dosing is done. Patient also met with [facility] and will follow-up with
them in the outpatient setting. Patient believes that he is ready for discharge.
Objective Data
-
Labs:
Laboratory Results
12/02/24
07:11
WBC 8.6
Hgb 14.3
Hct 42.3
Plt Count 321
Sodium 137
Potassium 4.6
Chloride 101
Carbon Dioxide 27
BUN 17
Creatinine 0.9
Glucose 161 H
Calcium 9.4
Total Bilirubin 0.8
AST 20
ALT 34
Alkaline Phosphatase 97
Vital Signs:
Vital Signs
Temp Pulse Resp BP Pulse Ox
98.3 F 88 16 107/70 97
12/02/24 08:20 12/02/24 08:20 12/02/24 08:20 12/02/24 08:20 12/02/24 08:20
I&O
12/01/24 12/02/24 12/03/24
06:59 06:59 06:59
Intake Total 720 / 720 480 / 480
Balance 720 / 720 480 / 480
Review of Systems
-
History Source: Patient
All other systems: Reviewed and negative
Constitutional: Reports No Symptoms
EENT: Reports No Symptoms Reported
Respiratory: Reports No Symptoms
Cardiac: Reports No Symptoms
Abdomen/GI: Reports No Symptoms
Breast: Reports No Symptoms
Genitourinary: Reports No Symptoms
Musculoskeletal: Reports No Symptoms
Skin: Reports No Symptoms
Neuro: Reports No Symptoms
Endocrine: Reports No Symptoms
Hematologic / Lymphatic: Reports No Symptoms
Allergy / Immunology: Reports No Symptoms
Physical Exam
-
General: Well Developed, Well Nourished, No Apparent Distress and Comfortable
HEENT: Normocephalic, Atraumatic and Moist Mucous Membranes
Respiratory: Clear to Auscultation; Negative Wheezes, Rales, Rhonchi or Crackles
Cardiac: Regular Rhythm and S1/S2
Breast: Deferred by me
GI: Soft, Nontender, Nondistended and Normal Bowel Sounds
Rectal: Deferred by Provider
Genito-urinary: Deferred by me
Musculoskeletal: No Clubbing, No Cyanosis and No Edema
Skin: Warm and Dry; Negative Rash, Ulcers or Lesions
Neuro: Awake, Alert, Oriented and AO x 3
Psych: Calm
--- NOTE | 2024-12-02 13:28 | W.DCSUMMARY ---
Documented by User: Zeinab Galarza MD, Resident 12/02/24 13:34
Discharge Summary
Discharge Data
Date of Admission: 11/29/24
Date of Discharge: 12/02/24
-
Pending Results: No
Hospital Course
Discharging Physician : Cj Barron DO
Disposition : Home
Primary care physician : Carrol Abrams
Principal Discharge diagnosis : Insulin-dependent diabetes mellitus status post hyperosmolar hyperglycemic state
Chronic Discharge diagnosis : Insulin-dependent diabetes mellitus, anxiety, hypercholesterolemia, substance abuse disorder
Hospital Course : Patient is a 34-year-old male with a past medical history of prediabetes recently diagnosed, essential hypertension, anxiety, depression, and hyperlipidemia who came to the emergency department with hallucinations, slurred speech,
increased thirst with urination. He reported using nitric oxide continuously for 1 week. He was using approximately 2-3 large canisters daily. The size of these canisters were about the size of a liter bottle. He uses THC frequently. At home he
was very thirsty unable to quench his thirst over the last few days prior to his presentation. He had been thirsty all the time. He has been urinating frequently and his parents have noticed that the frequency of his urination is very similar to
what his mother who has diabetes experienced when her glucose was poorly controlled. He was informed that he was prediabetic 2 to 3 months prior to his presentation. He states that he last used nitric oxide on last Sunday which was approximately
a week ago. Patient stated that he feels overall unwell and that he feels somewhat better after consuming food. The patient's parents were at the bedside and stated that the patient had slurred speech with hallucinations while at home. They also
stated that he was talking to people who were not there. He also had hyperhidrosis noted by his parents. His last episode of acute altered mental status was in May of this year. At that time he lived in [place] at a [facility] and was
found to be using nitric oxide at that time. Since then he is returned to [place] and lives with his parents. This most recent episode is the first time he is relapsed since arriving to [place]. He states that he does not smoke
cigarettes but he does vape nicotine. 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 In the emergency department the patient was found to be tachycardic but the remainder of his vital signs were within normal limits. CBC was unremarkable.
CMP showed a sodium of 130, potassium of 5.3, elevated glucose at 760, and alk phos of 199. Urine analysis showed 4+ glucose in the urine. ABG conducted in the emergency department was within normal limits. Urine drug screen was positive for
marijuana. CT scan of the head conducted in the emergency department was unremarkable. Patient was admitted to [facility] for hyperosmolar hyperglycemic state and altered mental status.
Patient was put on an insulin drip and his blood glucose rapidly corrected. The patient was much less confused after starting treatment. Diabetic nurse practitioner was consulted. With supportive measures including IV fluid support the patient's
glucose normalized. Patient was transitioned off of insulin drip and started on moderate insulin sliding scale. Urine microalbumin was normal. Hemoglobin A1c was found to be 9.1 indicating diabetes. Patient had pseudohyponatremia with a
calculated sodium level of 141. After meeting with diabetic nurse practitioner insulin sliding scale was discontinued and patient was put on 17 Lantus at bedtime and 7 NovoLog AC. Patient did well on this insulin regimen and felt like he was ready
for discharge. Patient was connected with [facility] regarding his polysubstance abuse. They will continue to meet with him in the outpatient setting and work with him so that he may not relapse again.
The patient has reached maximal benefit from this hospital admission and the patient is appropriate for discharge at the present time. There are no barriers that would impede the patient from being discharged from the hospital at the present time.
The patient should follow-up with their primary care provider within 1 week following discharge.
Important imaging findings :
CT of the head conducted on 11/29/2024:
No acute intracranial abnormality.
Procedure findings : Not applicable
Discharge Plan
-
Patient Disposition: Home (Routine Discharge)
Discharge Diagnosis/Procedures: Insulin-dependent diabetes mellitus status post hyperosmolar hyperglycemic state
Diet: Diabetic, Carb Controlled
Activity: No restrictions
Driving Restrictions: As prior to admission
Bathing Restrictions: None
Referrals:
Carrol Abrams MD [Family Provider, Internal Medicine] - in less than 1 week
Prescriptions:
New
(DME) Accu-Chek Guide test strips Strip
Qty: 200 1RF
Rx Instructions:
Test before each meal and bedtime As Directed E11.65
(DME) lancets [Accu-Chek Softclix Lancets] Misc
Qty: 200 1RF
Rx Instructions:
Test before each meal and bedtime As Directed E11.65
insulin aspart U-100 [Novolog FlexPen U-100 Insulin] 100 unit/mL (3 mL) Insulin Pen
7 unit SC AC Qty: 5 1RF
Rx Instructions:
Take with each meal
insulin glargine [Lantus Solostar U-100 Insulin] 100 unit/mL (3 mL) Insulin Pen
17 unit SC HS Qty: 5 1RF
(DME) pen needle, diabetic [Adela 2nd Gen Pen Needle] 32 gauge x 32' Needle
Qty: 200 1RF
Rx Instructions:
For use with prefilled insulin pens As Directed
Continued
atorvastatin [Lipitor] 10 mg Tablet
10 mg PO DAILY Qty: 0 0RF
folic acid 1 mg Tablet
1 mg PO DAILY Qty: 0 0RF
fluoxetine 60 mg Tablet
60 mg PO DAILY Qty: 0 0RF
Rexulti 1 mg Tablet
1 mg PO DAILY Qty: 0 0RF
Discharge Orders:
Discharge Patient (As Directed); Ordered 12/02/24
Ordered By: Zeinab Galarza
Discharge Date and Time
Print Language: ZAMBIAN

Documented by User: Cj Barron DO 12/02/24 14:18
Discharge Summary
Discharge Data
Date of Admission: 11/29/24
Date of Discharge: 12/02/24
Total time spent discharging patient (in min): 31
Discharge Plan
-
Patient Disposition: Home (Routine Discharge)
Discharge Diagnosis/Procedures: Insulin-dependent diabetes mellitus status post hyperosmolar hyperglycemic state
Diet: Diabetic, Carb Controlled
Activity: No restrictions
Driving Restrictions: As prior to admission
Bathing Restrictions: None
Referrals:
Carrol Abrams MD [Family Provider, Internal Medicine] - in less than 1 week
Prescriptions:
New
(DME) Accu-Chek Guide test strips Strip
Qty: 200 1RF
Rx Instructions:
Test before each meal and bedtime As Directed E11.65
(DME) lancets [Accu-Chek Softclix Lancets] Misc
Qty: 200 1RF
Rx Instructions:
Test before each meal and bedtime As Directed E11.65
insulin aspart U-100 [Novolog FlexPen U-100 Insulin] 100 unit/mL (3 mL) Insulin Pen
7 unit SC AC Qty: 5 1RF
Rx Instructions:
Take with each meal
insulin glargine [Lantus Solostar U-100 Insulin] 100 unit/mL (3 mL) Insulin Pen
17 unit SC HS Qty: 5 1RF
(DME) pen needle, diabetic [Adela 2nd Gen Pen Needle] 32 gauge x 5/32' Needle
Qty: 200 1RF
Rx Instructions:
For use with prefilled insulin pens As Directed
Continued
atorvastatin [Lipitor] 10 mg Tablet
10 mg PO DAILY Qty: 0 0RF
folic acid 1 mg Tablet
1 mg PO DAILY Qty: 0 0RF
fluoxetine 60 mg Tablet
60 mg PO DAILY Qty: 0 0RF
Rexulti 1 mg Tablet
1 mg PO DAILY Qty: 0 0RF
Discharge Orders:
Discharge Patient (As Directed); Ordered 12/02/24
Ordered By: Zeinab Galarza
Discharge Date and Time
Print Language: ZAMBIAN
--- NOTE | 2024-12-10 14:43 | PN.CDI ---
Addendum entered and electronically signed by Zeinab Galarza MD, Resident 12/12/24 15:48:
On the 12/02 note I futher elaborate:
'Psychiatry consulted for assessment and management of altered mental status that may be secondary to underlying psychiatric condition such as schizophrenia or polypharmacy in the setting of recreational drug use'
Patient had discontinued use of Nitrous Oxide for almost one week prior to his presentation according to the history taken in the ED. His altered mental status may be due to Nitrous Oxide but we were never able to determine that during the
admission. I am not comfortable altering my notes as they are accurate and describe what my clinical judgement was. We do not know the cause of his hallucinations beyond the suspicions of possible polypharmacy that was never proven or disproven. His
UDS was unremarkable so I could not correlate his mentation to any substances. Thank you.
Original Note:
CDI
- -
CDI:
Physician Documentation Request
Admit Date: 11/29/24 13:02
Dear Doctor Michell,
Patient admitted with hyperosmolar hyperglycemic state.
12/01 PN, 'Patient is a 34-year-old male....who came to the emergency department with hallucinations, slurred speech, increased thirst with urination. He reported using nitrous oxide continuously for 1 week.'
Please clarify the suspected relationship between these conditions:
Yes, hallucinations are related to/associated with/due to nitrous oxide.
No, hallucinations are not related to/associated with/due to nitrous oxide but it is due to ___. (Please specify)
Other
Use of terms such as suspected, likely, concern for, or probable (associated with a specific diagnosis that is being evaluated, monitored, or treated as if it exists) are acceptable and can be coded in the inpatient setting, when documented at the
time of discharge.
Thank you,
Bhavana KATE,RN,CCDS
CDI Specialist
Available via tiger text
Please use your independent medical judgment in providing your response.
== END 2024-12-02 16:11 | disposition home or self-care (01) | DRG 896 ==
LOC: 4 WEST ACU 13:02
PROVIDERS: ADMITTING PHYSICIAN Internal Medicine; ATTENDING PHYSICIAN Internal Medicine; EMERGENCY PHYSICIAN Emergency Medicine; FAMILY PHYSICIAN Internal Medicine; OTHER PHYSICIAN Psychiatry & Neurology Psychiatry
DX: F18.1 Inhalant abuse (principal); E11.00 Type 2 diabetes mellitus with hyperosmolarity without nonketotic hyperglycemic-hyperosmolar coma (NKHHC); E11.65 Type 2 diabetes mellitus with hyperglycemia; I10 Essential (primary) hypertension; F32.A Depression, unspecified; F41.1 Generalized anxiety disorder; F43.10 Post-traumatic stress disorder, unspecified; F17.290 Nicotine dependence, other tobacco product, uncomplicated; E66.3 Overweight; F12.90 Cannabis use, unspecified, uncomplicated; E78.00 Pure hypercholesterolemia, unspecified; Z68.32 Body mass index [BMI] 32.0-32.9, adult; Z56.0 Unemployment, unspecified; Z79.899 Other long term (current) drug therapy
CPT/HCPCS: 70450; 80048; 80053; 80306; 81003; 82043; 82805; 82962; 83036; 83050; 83735; 84443; 85025; 85027; 93005; 96361; 96365; 96366; 96375; 99291